=== PATIENT | male | born 1975 | race Caucasian/White ===

== ENCOUNTER 2017-01-05 09:32 | Emergency (ER) | payer OTHER ==
[~2017-01-05] VITALS: Ht 190.5 cm; Wt 95.7 kg
[~2017-01-05 09:32] MED LIST: ALBUTEROL SULF8.5 GM IH; AMOXICILLIN875 MG PO; ANAPROX DS550 M1 PO; AUGMENTIN875 MG PO; FLEXERIL10 MG PO; FLONASE16 G1 BOTH NARES; LIDODERM 5% P1 PATCH TD; MOTRIN600 MG PO; MOTRIN800 MG PO; MUCUS ER600 MG PO; NAPROXEN500 MG PO; NORCO 5/3251 TABLET PO; OXYCODONE HCL10 MG PO; PATANOL OP100 DROP/5 BOTH EYES; PHENERGAN-CODE120 ML PO; PREDNISONE10 MG PO; PREDNISONE50 MG PO; ROBITUSSIN AC,T10 ML PO; TESSALON PERLE100 MG PO; ULTRAM50 MG PO; VENTOLIN HFA18 GM IH; ZITHROMAX Z-PA250 MG PO; ZOFRAN4 MG PO; ZYRTEC10 M2 PO
[2017-01-05 10:23] LABS: BASOPHIL COUNT 0.1 K/uL (0-0.1); EOSINOPHIL (%) 0.6 % (0-5); EOSINOPHIL COUNT 0.1 K/uL (0-0.3); HEMATOCRIT 43.8 % (38.0-50.0); IMMATURE GRANULOCYTE (%) 0.3 % (0.0-0.7); INSTRUMENT ABS NEUTROPHIL CT 9.1 K/uL; LYMPHOCYTE COUNT 2.2 K/uL (1.0-2.8); MCH 27.7 PG (29.0-34.0); MCHC 32.6 G/DL (30.0-36.0); MCV 84.7 FL (86-99); MEAN PLAT.VOLUME 9.8 uM^3 (9.0-12.4); MONOCYTE (%) 5.2 % (3-12); MONOCYTE COUNT 0.6 K/uL (0-0.8); NEUTROPHIL (%) 75.6 % (45-76); NEUTROPHIL COUNT 9.1 K/uL (1.8-6.4); PLATELET COUNT 287 K/uL (156-360); RBC DIS.WIDTH-CV 14.2 % (11.8-14.6); RBC DIS.WIDTH-SD 44.3 % (39-53); RED BLOOD COUNT 5.17 M/uL (4.00-5.50)
[2017-01-05 10:33] LABS: CHLORIDE 109 mEq/L (99-109); POTASSIUM 4.2 mEq/L (3.7-5.4); SODIUM 140 mEq/L (136-147)
[2017-01-05 10:35] LABS: GLUCOSE 121 mg/dL (70-99)
[2017-01-05 10:36] LABS: ANION GAP 8 MEQ/L (2-14)
[2017-01-05 10:39] LABS: GFR ESTIMATE (CALCULATED) > 59 mL/min/
[2017-01-05 10:40] LABS: UREA NITROGEN (BUN) 9 mg/dL (9-23)
[2017-01-05 11:47] LABS: TOTAL BILIRUBIN 0.6 mg/dL (0.0-1.0)
[2017-01-05 11:49] LABS: ALKALINE PHOSPHATASE 113 IU/L (3-129)
[2017-01-05 11:51] LABS: DIRECT BILIRUBIN 0.3 mg/dL (0.0-0.3)
[2017-01-05 14:20] VITALS: BP 132/84
== END 2017-01-05 14:20 | disposition home or self-care (01) ==
LOC: EME 09:32
PROVIDERS: Physician Assistant
DX: R60.9 Edema, unspecified (principal); R05 Cough; F17.200 Nicotine dependence, unspecified, uncomplicated
CPT/HCPCS: 71020; 80048; 80076; 83880; 85025; 93970; 99281; 99284